=== PATIENT | female | born 1955 | race Caucasian/White ===

== ENCOUNTER 2017-12-22 09:41 | Outpatient (CLI) | payer BC ==
--- NOTE | 2017-12-22 12:12 | MMO ---
BILATERAL SCREENING MAMMOGRAM: Date: 12/22/17 HISTORY: 62-year-old female. Routine screening mammography. COMPARISON: 07/19/13, 07/24/14, 10/22/15, 12/10/16. TECHNIQUE: CC and MLO views of both breasts are submitted for interpretation. This patient's mammogram was reviewed with the assistance of computer-aided detection. FINDINGS: The breasts are composed of scattered fibroglandular tissue. Bilaterally, no suspicious dominant mass , architectural distortion, or suspicious calcifications. Bilateral benign-appearing calcifications a re identified. IMPRESSION: BIRADS 2: Benign Finding(s) RECOMMENDATION: Annual mammogram. POS: [facility]
== END 2017-12-22 09:42 | disposition home or self-care (01) ==
LOC: SCSMAMMO 09:41
PROVIDERS: ATTEND Obstetrics & Gynecology
DX: Z12.31 Encounter for screening mammogram for malignant neoplasm of breast (principal)
CPT/HCPCS: 77067

== ENCOUNTER 2023-02-24 09:27 | Outpatient (CLI) | payer MEDICARE ==
[2023-02-24 12:02] LABS: #Eosinphils 0.1 10x3/uL (0.0-0.5); #Monocytes 0.3 10x3/uL (0.0-1.1); #Neutrophils 2.7 10x3/uL (1.5-8.4); %Basophils 0.6 % (0.0-2.0); %Eosinophils 1.1 % (0.0-6.0); %Monocytes 6.8 % (0.0-10.0); %Neutrophils 58.3 % (40.0-75.0); Hematocrit 43.5 % (34.9-44.5); Hemoglobin 14.3 g/dL (12.0-15.5); Mean Corpuscular HGB CONC 32.9 g/dL (32.0-36.0); Mean Corpuscular Hemoglobin 31.3 pg (27.0-33.0); Mean Corpuscular Volume 95.2 fl (81.6-98.3); Mean Platelet Volume 10.8 fl (7.4-10.4); Platelet Count 244 10x3/uL (150-450); RBC Distribution Width 12.8 % (11.5-14.5); Red Blood Cell (RBC) Count 4.57 10x6/uL (3.90-5.03); White Blood Cell (WBC) Count 4.7 10x3/uL (3.5-10.5)
[2023-02-24 12:10] LABS: Anion Gap 13 mmol/L (10-20); BUN (Urea Nitrogen) 11 mg/dL (9.8-20.1); Calc. Creatinine Clearance 0 mL/min (70-130); Calcium 9.6 mg/dL (7.8-10.44); Carbon Dioxide 26 mmol/L (23-31); Chloride 104 mmol/L (98-107); Estimated GFR 81; Glucose 107 mg/dL (80-115); Potassium 3.7 mmol/L (3.5-5.1); Sodium 139 mmol/L (136-145)
== END 2023-02-24 09:28 | disposition home or self-care (01) ==
LOC: LABBT 09:27
PROVIDERS: ATTEND Orthopaedic Surgery
DX: Z01.818 Encounter for other preprocedural examination (principal); M19.012 Primary osteoarthritis, left shoulder
CPT/HCPCS: 80048; 85025; 93005; 93010

== ENCOUNTER 2023-02-26 05:39 | Day surgery (SDC) | payer MEDICARE, BC ==
[2023-02-24 10:15] VITALS: BMI 24.1
[2023-02-26] MEDS ORDERED: Vancomycin 1 GM/200 ML (FROZEN) BAG ONE (06:01)
[2023-02-26] MEDS ORDERED: Tranexamic Acid 1,000 MG/10 ML VIAL ONE (06:01)
[2023-02-26] MEDS ORDERED: Sodium Chloride 0.9% 100 ML ONE ×2 (06:01→06:51)
[2023-02-26] MEDS ORDERED: Midazolam HCl 2 mg/2 ml Vial ONE (06:19)
[2023-02-26] MEDS ORDERED: Phenylephrine 40 MG/NS 250 ML 250 ML ONE (06:19)
[2023-02-26] MEDS ORDERED: fentaNYL PF 100 MCG/2 ML SYRINGE ONE (06:19)
[2023-02-26] MEDS ORDERED: Ondansetron PF 4 MG/2 ML Vial ONE ×2 (06:27→07:19)
[2023-02-26] MEDS ORDERED: Metoclopramide HCl 10 MG/2 ML VIAL ONE (06:27)
[2023-02-26] MEDS ORDERED: PROPOFOL 20 ML ONE (06:27)
[2023-02-26] MEDS ORDERED: Ketorolac Tromethamine 30 MG/ML VIAL ONE ×2 (06:27→07:19)
[2023-02-26] MEDS ORDERED: Lidocaine 2% PF 5 ML VIAL ONE (06:27)
[2023-02-26] MEDS ORDERED: Dexamethasone 20 MG/5 ML VIAL ONE (06:27)
[2023-02-26] MEDS ORDERED: Rocuronium Bromide 10 MG/ML (10ML VIAL) ONE ×2 (06:27→07:19)
[2023-02-26] MEDS ORDERED: Scopolamine 1 mg/72 hour Patch ONE (06:49)
[2023-02-26] MEDS ORDERED: CEFAZOLIN 2 GM VIAL ONE (06:51)
[2023-02-26] MEDS ORDERED: Glycopyrrolate 0.2 MG/ML 5 ML SYRINGE ONE ×2 (07:19→08:50)
[2023-02-26] MEDS ORDERED: PROPOFOL 200 MG/20 ML VIAL ONE (07:19)
[2023-02-26] MEDS ORDERED: NEOSTIGMINE 3 MG/3 ML SYR 3 MG/3 ML SYRINGE ONE ×2 (07:19→08:50)
[2023-02-26] MEDS ORDERED: Lidocaine 1% PF 5 ML VIAL ONE (07:19)
[2023-02-26] MEDS ORDERED: Lidocaine 1% (PF) 30 ML VIAL ONE (07:31)
[2023-02-26] MEDS ORDERED: Ropivacaine 0.5% HCl/PF (150 MG/30 ML VIAL) ONE (07:31)
[2023-02-26] MEDS ORDERED: Ropivacaine 0.2% HCl/PF 20 ML ONE (07:31)
[2023-02-26] MEDS ORDERED: fentaNYL 50 mcg/mL 1 mL Vial SLOW IVP PRN (08:14)
[2023-02-26] MEDS ORDERED: traMADol HCl 50 MG TAB PO PRN ×2 (08:15)
[2023-02-26] MEDS ORDERED: Ondansetron PF 4 MG/2 ML Vial IVP PRN (08:15)
[2023-02-26] MEDS ORDERED: HYDROcodone/Acetaminophen 10/325 mg Tablet PO PRN ×2 (08:15)
[2023-02-26] MEDS ORDERED: Zolpidem Tartrate 5 MG TAB PO PRN (08:15)
[2023-02-26] MEDS ORDERED: Promethazine HCl 25 MG/ML VIAL IM PRN (08:15)
[2023-02-26] MEDS ORDERED: Ropivacaine 0.2% 550 ML 550 ML NERVE BLCK SCH (08:15)
[2023-02-26] MEDS ORDERED: Ketorolac Tromethamine 30 MG/ML VIAL IVP SCH (12:00)
== END 2023-02-26 12:42 | disposition home or self-care (01) ==
LOC: SDC 05:39
PROVIDERS: ATTEND Orthopaedic Surgery
PROC: 0RQH0ZZ Repair Left Acromioclavicular Joint, Open Approach (ICD-10-PCS; principal; 2023-02-26)
DX: M19.012 Primary osteoarthritis, left shoulder (principal); Z90.710 Acquired absence of both cervix and uterus; F41.9 Anxiety disorder, unspecified; Z90.89 Acquired absence of other organs; Z88.5 Allergy status to narcotic agent; Z79.899 Other long term (current) drug therapy
CPT/HCPCS: 23472; 97110; A4306; C1713; C1776 ×3; J3370; J1100; J1885; J2001; J2250; J2405; J2704; J2765; J2795; J3490